=== PATIENT | female | born 1955 | race African-American/Black ===

== ENCOUNTER 2018-11-11 12:29 | Observation (INO) ==
--- OUTSIDE RECORDS SUMMARY | 2018-11-11 12:33 | External Medical Summary | Continuity of Care Document ---
:1955 Author Name aLn Camacho Address Unavailable Unavailable , Care Team Providers Name Role Phone Unavailable Unavailable Unavailable Nevin FERGUSON Unavailable [email or web address] [email or web address] [email or web address] GREENBERG Unavailable Unavailable Unavailable Unavailable Unavailable Problems Pain in shoulder (719.41) (M25.519) Diabetes mellitus, type II (250.00) (E11.9) Hypertension (401.9) (I10) Tobacco use (305.1) (Z72.0) Vitamin D deficiency (268.9) (E55.9) Restrictive airway disease (518.89) (J98.4) COPD (chronic obstructive pulmonary disease) (496) (J44.9) Cough (786.2) (R05) Hyperuricemia (790.6) (E79.0) Dyslipidemia (272.4) (E78.5) Depression (311) (F32.9) Chronic pain (338.29) (G89.29) GERD (gastroesophageal reflux disease) (530.81) (K21.9) Spinal stenosis (724.00) (M48.00) Allergies and Adverse Reactions Augmentin TABS (Allergy) CeleBREX CAPS (Allergy) Reaction: Edema Sulfa Drugs (Allergy) Medications CeleXA 40 MG Oral Tablet; 1 tablet daily , M.D. Refills: 0 Ambien 10 MG Oral Tablet; TAKE 1 TABLET AT BEDTIME. , M.D. Refills: 0 Flexeril 10 MG TABS; TAKE 1 TABLET 3 TIMES DAILY NEEDED. , M.D. Quantity: 90 Refills: 0 Chantix 0.5 MG Oral Tablet , M.D. Refills: 0 Accu-Chek Jazmín STRP; TEST 1-3 TIMES DAILY USE DIRECTED. , M.D. Refills: 0 Allopurinol 100 MG Oral Tablet; TAKE 1 TABLET DAILY. , M.D. Quantity: 30 Refills: 5 Gabapentin 300 MG TABS; TAKE 1 TABLET TWICE DAILY. , M.D. Refills: 0 metFORMIN HCl - 500 MG Oral Tablet; take 1 tablet by mouth t wice a day , M.D. Quantity: 180 Refills: 3 Vitamin B Complex TABS , M.D. Refills: 0 traZODone HCl - 100 MG Oral Tablet; TAKE 2 TABLETS AT BEDTIM E. , M.D. Quantity: 60 Refills: 0 metOLazone 2.5 MG Oral Tablet; ONE EVERY OTHER DAY , M.D. Refills: 0 Carafate 1 GM Oral Tablet; TAKE 1 TABLET 4 TIMES DAILY, BEFORE MEALS AND AT BEDTIME. , M.D. Refills: 0 Furosemide 20 MG Oral Tablet; TAKE 1 TABLET DAILY NEEDED. , M.D. Quantity: 30 Refills: 0 Lopressor 50 MG Oral Tablet; TAKE 1 TABLET DAILY. , M.D. Refills: 0 Vitamin D 1000 UNIT CAPS; TAKE DIRECTED. , M.D. Refills: 0 Cymbalta 20 MG Oral Capsule Delayed Release Particles; TAKE 2 CAPSULES DAILY. , M.D. Start: 11-Dec-2015 Refills: 0 Oxygen; 2LPM with activity MARTY Rooney Start: Quantity: 2 Refills: 0 Procedures History of Breast Surgery Reduction Procedure Status: Completed History of Rotator Cuff Repair Status: C ompleted History of Hemilaminectomy Status: Compl eted History of Hysterectomy Status: Complete d Immunizations Immunizations not documented Family History Mother Family history of congestive heart failure (V17.49) (Z82.49) Status: Active Social History - Smoking Status Former smoker Plan of Treatment Planned Observations Planned Goals not documented Results No Known Results Results not documented
--- NOTE | 2018-11-11 12:49 | XRay Report ---
XR chest 1V portable HISTORY: 63 years-old Female Chest Pain acute atypical chest pain COMPARISON: None available TECHNIQUE: Portable AP view of the chest FINDINGS: Cardiac silhouette is enlarged. No pneumothorax, large pleural effusion or overt pulmonary edema. Sub segmental left lateral basilar opacities with blunting of the left costophrenic angle. Degenerative c hanges of the left shoulder and spine. Right shoulder reverse total joint arthroplasty. IMPRESSION: 1. Cardiomegaly without overt pulmonary edema. 2. Subsegmental left basilar opacities with blunting of the left costophrenic angle may reflect atele ctasis and/or trace effusion. The above report was generated using voice recognition software. It may contain grammatical, syntax o r spelling errors. Electronically signed by: Rolo Johnson M.D. 11/11/2018 12:48 PM
[2018-11-11 13:05] LABS: Basophils # (auto) 0.03 K/uL (0-0.2); Basophils % (auto) 0.4 %; Eosinophils # (auto) 0.24 K/uL (0-0.5); Eosinophils % (auto) 3.5 %; Hematocrit (blood only) 44.1 % (37-47); Hemoglobin 14.9 g/dL (12.0-16.0); Immature Granulocytes # (auto) 0.01 K/uL (0.00-0.02); Immature Granulocytes % (auto) 0.1 %; Lymphocytes # (auto) 2.81 K/uL (1.2-3.4); Lymphocytes % (auto) 40.7 %; Mean Corpuscular Hgb Conc 33.8 g/dL (32-36); Mean Corpuscular Volume 90.6 fL (80-100); Monocytes # (auto) 0.46 K/uL (0.11-0.59); Monocytes % (auto) 6.7 %; Neutrophils # (auto) 3.36 K/uL (1.4-6.5); Neutrophils % (auto) 48.6 %; Platelet Count 234 K/uL (130-400); RDW Coefficient of Variation 13.2 % (11.5-14.5); RDW Standard Deviation 43.7 fL (36.4-46.3); Red Blood Count 4.87 M/uL (4.2-5.4); White Blood Count 6.91 K/uL (4.8-10.8)
[2018-11-11 13:11] LABS: Alanine Aminotransferase 23 U/L (12-78); Albumin Level 3.9 gm/dl (3.4-5.0); Aspartate Aminotransferase 19 U/L (15-37); BUN Creatinine Ratio 7.3 (10-20); Blood Urea Nitrogen 6 mg/dl (7-18); Calcium 8.9 mg/dl (8.5-10.1); Carbon Dioxide 31 mmol/L (21-32); Chloride 105 mmol/L (98-107); Creatinine Clr Calc Pharmacy 81.7 ml/min; Est GFR (African American) 86.9; Glucose 143 mg/dl (70-99); Potassium 3.5 mmol/L (3.5-5.1); Sodium 140 mmol/L (136-145)
[2018-11-11 13:16] LABS: Albumin Globulin Ratio 1.1 (0.9-2); Alkaline Phosphatase 121 U/L (45-117); Bilirubin,Total 0.4 mg/dl (0.2-1); Globulin 3.5 gm/dl (2.5-4.0); Total Protein 7.4 gm/dl (6.4-8.2); Troponin I < 0.015 ng/ml (0-0.045)
[2018-11-11 13:37] LABS: INR 1.1 (0.9-1.1); Partial Thromboplastin Ratio 1.1; Partial Thromboplastin Time 30.2 Seconds (21.0-31.0); Prothrombin Time 11.3 Seconds (9.0-12.0)
[2018-11-11 13:51] LABS: D Dimer 570 ug/L FEU (0-500)
[2018-11-11] MEDS ORDERED: OPTIRAY 320 125ml IV PRN (14:18)
--- NOTE | 2018-11-11 14:31 | CT Scan Report ---
CT angio chest PE protocol CT DOSE: 618.58 mGy.cm HISTORY: 63 years-old Female with PE. Acute shortness of breath TECHNIQUE: Multiple CTA images of the chest were obtained after the intravenous administration of 118 ml Optiray 320. Coronal and sagittal MIPS were obtained from the axial data set and were submitted for review. All measurements were obtained according to NASCET criteria. A dose lowering technique w as utilized adhering to the principles of ALARA. COMPARISON: Chest radiograph of same day. FINDINGS: CTA: Heart is mildly enlarged. No pericardial effusion. Reflux of contrast into the IVC and hepatic veins. Mild degree of coronary arterial calcifications are noted. No thoracic aortic aneurysm or dissection . Patency of the imaged great vessels. The pulmonary arterial tree is opacified to the level of the p roximal subsegmental branches and demonstrates no focal filling defects to suggest pulmonary thromboe mbolic disease. CT CHEST: Mildly enlarged heterogeneous appearance of the thyroid. No adenopathy by CT size criteria. The infer ior lung bases are not imaged. Mild paraseptal emphysema versus subpleural bleb formation of the lung apices. 5 mm groundglass nodular opacity of the apical segment right upper lobe, image 174 series 4. Additional 5 mm groundglass density of the right upper lobe adjacent to the major fissure, image 143 series 4 may be atelectatic in nature. Mild subsegmental dependent bibasilar atelectasis. No overt p ulmonary edema. The central airways appear to be patent. No focal airspace consolidation typical for pneumonia. No acute process of the imaged upper abdomen. Soft tissues are within normal limits. Reverse right sh oulder total joint arthroplasty. Degenerative changes of the spine and left shoulder. No acute fractu re identified. IMPRESSION: 1. No acute intrathoracic abnormality identified, specifically there is no evidence of pulmonary thro mboembolic disease. 2. 5 mm groundglass nodular opacity of the right lung apex. Follow-up guidelines provided below. Please refer to below summary of Fleischner criteria recommendations for follow-up of incidental CT n odules (Eliel Griggs, Guidelines for management of small pulmonary nodules detected on CT scans: A sta tement from the Fleischner Society, Radiology 237: [phone].) Note: newly detected indeterminate nodule in persons 35 years of age or older. * Low risk patients: minimal or absent history of smoking and/or other known risk factors * high risk patients: history of smoking or of other known risk factors (e.g. first degree relative with lung cancer, or exposure to asbestos, radon, uranium) * if a nodule up to 8 mm is partly solid or is ground glass further follow-up is required after 24 m onths to exclude possible slow growing adenocarcinoma (HAY) SUBSOLID NODULES Solitary pure ground-glass nodule * nodule size <6 mm - no CT follow-up required * nodule size >=6 mm - follow-up CT at 6-12 months, then every 2 years until 5 years Multiple subsolid nodules * nodule size <6 mm - follow-up CT at 3-6 months, consider further follow-up at 2 and 4 years if sta ble * nodule size >=6 mm - follow-up CT at 3-6 months, subsequent management based on the most suspiciou s nodule(s) The above report was generated using voice recognition software. It may contain grammatical, syntax o r spelling errors. Electronically signed by: Rolo Johnson M.D. 11/11/2018 2:30 PM
[2018-11-11] MEDS ORDERED: HYDROmorphone INJ 1 MG/ML SYRINGE IV STA (14:55)
--- NOTE | 2018-11-11 15:24 | Emergency Department Note ---
Entered by Clifford Laird acting as a scribe for Alex Grigsby DO History of Present Illness General Chief complaint: Chest Pain Stated complaint: chest pain Source: patient and EMS History of Present Illness Onset (ago): week(s) (past couple) Location: chest Pain Consistency: + intermittent Quality: + other (chest pains) Relieved By: + none Exacerbated By: + none Associated symptoms: + other (denies recent travel) Treatments prior to arrival: aspirin The patient is a 63 year old female who presents to the Emergency Room with complaints of intermittent chest pain for the past couple of weeks. EMS states that the patient was at the pain clinic in [place] today and told them she was having chest pain, so the ambulance was called and she was given 4 baby aspirin but no nitroglycerin. EMS reports that the patient had an EKG prior to arrival that was unremarkable. They state that she is on blood thinners and had a PE five months ago. The patient reports that she is currently experiencing the chest pain, and nothing improves or worsens it. She states that she uses 2L of supplemental oxygen at night and she regularly smokes. She states that she had a cardiac stress test at [facility] last year that was unremarkable. She has not had a cardiac catheterization. She denies recent travel. Home Medications Home Medications Medication Instructions Recorded Confirmed Type albuterol sulfate [Ventolin HFA] 2 puff INHALATION Q4H PRN 11/11/18 11/11/18 History apixaban [Eliquis] 5 mg PO BID 11/11/18 11/11/18 History atorvastatin 10 mg PO HS 11/11/18 11/11/18 History clopidogrel 75 mg PO QAM 11/11/18 11/11/18 History diphenhydramine-acetaminophen 2 tab PO HS 11/11/18 11/11/18 History [Tylenol PM Extra Strength] duloxetine 30 mg PO QAM 11/11/18 11/11/18 History gabapentin 800 mg PO TID 11/11/18 11/11/18 History insulin aspart U-100 [Novolog 25 unit SUBCUT UD 11/11/18 11/11/18 History Flexpen U-100 Insulin] insulin glargine [Lantus U-100 35 unit SUBCUT HS 11/11/18 11/11/18 History Insulin] levetiracetam 1,000 mg PO BID 11/11/18 11/11/18 History metformin 500 mg PO UD 11/11/18 11/11/18 History oxybutynin chloride 10 mg PO HS 11/11/18 11/11/18 History primidone 50 mg PO HS 11/11/18 11/11/18 History ropinirole 1 mg PO HS 11/11/18 11/11/18 History trazodone 200 mg PO HS 11/11/18 11/11/18 History varenicline [Chantix Continuing 1 mg PO BID 11/11/18 11/11/18 History Month Box] Allergies Allergy/AdvReac Type Severity Reaction Status Date / Time celecoxib [From Celebrex] AdvReac Severe Swelling Unverified 11/11/18 15:35 of Lip/Tongue/Throat amoxicillin [From Augmentin] AdvReac Intermediate Gastrointestinal Unverified 11/11/18 15:35 Upset clavulanic acid AdvReac Intermediate Gastrointestinal Unverified 11/11/18 15:35 [From Augmentin] Upset Sulfa (Sulfonamide AdvReac Unknown Unknown Unverified 11/11/18 15:35 Antibiotics) Past Med/Surg History Medical History Pulmonary embolism (Acute) on Eliquis COPD (chronic obstructive pulmonary disease) (Chronic) Diabetes mellitus, type II (Chronic) GERD (gastroesophageal reflux disease) (Chronic) HLD (hyperlipidemia) (Chronic) HTN (hypertension) (Chronic) History of CVA (cerebrovascular accident) (Chronic) Mood disorder (Chronic) Osteoarthritis (Chronic) Seizure-like activity (Chronic) Tobacco use disorder (Chronic) Vitamin D deficiency (Chronic) Surgical History H/O shoulder surgery History of carpal tunnel surgery Social History Preferred Language: Urdu Communication Ability: Effective Clinician Oncology Required: No Beliefs That Will Affect Care: None Current Living Situation: Family Current Living Situation Comment: lives w/ dtr Other Information That Helps Us Care for You: No Feels Safe at Home: Yes Safety Concerns: Feels Safe At This Time Smoking Status: Current every day smoker Tobacco Type: cigarettes Cigarettes Per Day: 3 Do You Dip or Chew Tobacco: No Tobacco Cessation Education Requested by Patient: No Hx Alcohol Use: No Hx Substance Use: No Review of Systems See HPI for pertinent positives & negatives. and A total of 10 systems reviewed and were otherwise negative Physical Exam Vital Signs Vital Signs - 24 hr 11/11/18 12:36 11/11/18 14:58 11/11/18 16:31 Temperature 36.8 C Temperature Source Oral Sepsis Recent Fever Within 48 Hours No Sepsis New/Unexplained Change in Mental Status No Sepsis Action Taken by Nursing No Action Required Pulse Rate 79 95 H Pulse Rate [Apical] 76 Pulse Rate from SpO2 Sensor 93 H Pulse Rhythm Regular Pulse Rhythm [Apical] Regular Pulse Strength Normal Pulse Strength [Apical] Normal Respiratory Rate 19 18 28 H Respiratory Effort / Characteristics Non-Labored Spontaneous Non-Labored Spontaneous Respiratory Depth Normal Normal Respiratory Pattern Regular Regular Blood Pressure 179/116 H 158/104 H Blood Pressure [Right Arm] 175/103 H Blood Pressure Mean 137 122 Blood Pressure Mean [Right Arm] 127 Blood Pressure Position [Right Arm] Pulse Oximetry 96 94 95 Oxygen Delivery Method Room Air Room Air 11/11/18 17:00 Temperature Temperature Source Sepsis Recent Fever Within 48 Hours Sepsis New/Unexplained Change in Mental Status Sepsis Action Taken by Nursing Pulse Rate Pulse Rate [Apical] 87 Pulse Rate from SpO2 Sensor Pulse Rhythm Pulse Rhythm [Apical] Regular Pulse Strength Pulse Strength [Apical] Normal Respiratory Rate 20 Respiratory Effort / Characteristics Non-Labored Spontaneous Respiratory Depth Normal Respiratory Pattern Regular Blood Pressure Blood Pressure [Right Arm] 151/101 H Blood Pressure Mean Blood Pressure Mean [Right Arm] 117 Blood Pressure Position [Right Arm] Lying Pulse Oximetry 97 Oxygen Delivery Method Room Air GENERAL: Patient is awake, alert, and in no acute distress.Patient is resting comfortably and showing no signs of anxiety EYES: The conjunctivae are clear. The pupils are round and reactive. EARS, NOSE, MOUTH AND THROAT: The nose is without any evidence of any deformity. Mucous membranes are moist.Tongue is midline NECK: The neck is nontender and supple. RESPIRATORY: Normal respiratory effort is noted. There is no evidence of wheezing rhonchi or rales to auscultation. CARDIOVASCULAR: Regular rate and rhythm noted. There no murmurs rubs or gallops normal S1 normal S2 GASTROINTESTINAL: The abdomen is soft. Bowel sounds are present in all quadrants. Abdomen is nontender. MUSCULOSKELETAL/EXTREMITIES: There is no evidence of gross deformity. Full range of motion is noted in the hips and shoulders. SKIN: There is no obvious evidence of any rash. There are no petechiae, pallor or cyanosis noted. NEUROLOGIC: Patient is awake alert and oriented x3. Course 1230: The patient was evaluated in room A4B. A complete history and physical examination were performed. 1454: I discussed tonights findings with the patient. 1614: I consulted Emili Richardson PA-C: [facility] Hospitalist. The patient will be reevaluated for hospitalization. Administered Medications Ioversol (Optiray 320 125ml) 120 ml IV ONCE PRN PRN Reason: Interaction Checking Stop: 11/15/18 14:17 Last Admin: 11/11/18 14:19 Dose: 120 ml Documented by: [id number] Metoprolol Tartrate (Lopressor) 25 mg PO QAM BRIGID Stop: 12/11/18 17:14 Last Admin: 11/11/18 17:15 Dose: 25 mg Documented by: [id number] Discontinued Medications Hydromorphone HCl (Dilaudid) 1 mg IV NOW STA Stop: 11/11/18 14:56 Last Admin: 11/11/18 14:58 Dose: 1 mg Documented by: [id number] Medical Decision Making Differential Diagnosis Differential diagnosis includes: cardiac ischemia, aortic dissection, pulmonary embolism, pneumonia, pneumothorax, musculoskeletal, infections, pericarditis, myocarditis, esophageal rupture, gastrointestinal, as well as others were entertained. Medical Records Attestation: I reviewed the patient's medical records. Home Medications Current Medication List: was personally reviewed by me Laboratory Data Attestation: I reviewed the patient's lab results. Result diagrams: 11/11/18 12:00 11/11/18 12:00 Lab Results 11/11/18 11/11/18 11/11/18 Range/Units 12:00 12:00 12:00 WBC 6.91 (4.8-10.8) K/uL RBC 4.87 (4.2-5.4) M/uL Hgb 14.9 (12.0-16.0) g/dL Hct 44.1 (37-47) % MCV 90.6 (80-100) fL MCH 30.6 (25-34) pg MCHC 33.8 (32-36) g/dL RDW Std Deviation 43.7 (36.4-46.3) fL RDW Coeff of Samra 13.2 (11.5-14.5) % Plt Count 234 (130-400) K/uL MPV 11.0 H (7.4-10.4) fL Immature Gran % (Auto) 0.1 % Neut % (Auto) 48.6 % Lymph % (Auto) 40.7 % Desha % (Auto) 6.7 % Eos % (Auto) 3.5 % Baso % (Auto) 0.4 % Immature Gran # (Auto) 0.01 (0.00-0.02) K/uL Neut # (Auto) 3.36 (1.4-6.5) K/uL Lymph # (Auto) 2.81 (1.2-3.4) K/uL Desha # (Auto) 0.46 (0.11-0.59) K/uL Eos # (Auto) 0.24 (0-0.5) K/uL Baso # (Auto) 0.03 (0-0.2) K/uL PT Cancelled INR Cancelled APTT Cancelled PTT Ratio Cancelled D-Dimer Cancelled Sodium 140 (136-145) mmol/L Potassium 3.5 (3.5-5.1) mmol/L Chloride 105 (98-107) mmol/L Carbon Dioxide 31 (21-32) mmol/L Anion Gap 4.0 (3-11) BUN 6 L (7-18) mg/dl Creatinine 0.84 (0.6-1.2) mg/dl Est Cr Clr Drug Dosing 81.7 ml/min Est GFR ( Amer) 86.9 Est GFR (Non-Af Amer) 75.0 BUN/Creatinine Ratio 7.3 L (10-20) Glucose 143 H (70-99) mg/dl Calcium 8.9 (8.5-10.1) mg/dl Total Bilirubin 0.4 (0.2-1) mg/dl AST 19 (15-37) U/L ALT 23 (12-78) U/L Alkaline Phosphatase 121 H (45-117) U/L Troponin I < 0.015 (0-0.045) ng/ml Total Protein 7.4 (6.4-8.2) gm/dl Albumin 3.9 (3.4-5.0) gm/dl Globulin 3.5 (2.5-4.0) gm/dl Albumin/Globulin Ratio 1.1 (0.9-2) Lipase 76 (73-393) U/L 11/11/18 Range/Units 13:17 WBC (4.8-10.8) K/uL RBC (4.2-5.4) M/uL Hgb (12.0-16.0) g/dL Hct (37-47) % MCV (80-100) fL MCH (25-34) pg MCHC (32-36) g/dL RDW Std Deviation (36.4-46.3) fL RDW Coeff of Samra (11.5-14.5) % Plt Count (130-400) K/uL MPV (7.4-10.4) fL Immature Gran % (Auto) % Neut % (Auto) % Lymph % (Auto) % Desha % (Auto) % Eos % (Auto) % Baso % (Auto) % Immature Gran # (Auto) (0.00-0.02) K/uL Neut # (Auto) (1.4-6.5) K/uL Lymph # (Auto) (1.2-3.4) K/uL Desha # (Auto) (0.11-0.59) K/uL Eos # (Auto) (0-0.5) K/uL Baso # (Auto) (0-0.2) K/uL PT 11.3 INR 1.1 APTT 30.2 PTT Ratio 1.1 D-Dimer 570 H* Sodium (136-145) mmol/L Potassium (3.5-5.1) mmol/L Chloride (98-107) mmol/L Carbon Dioxide (21-32) mmol/L Anion Gap (3-11) BUN (7-18) mg/dl Creatinine (0.6-1.2) mg/dl Est Cr Clr Drug Dosing ml/min Est GFR ( Amer) Est GFR (Non-Af Amer) BUN/Creatinine Ratio (10-20) Glucose (70-99) mg/dl Calcium (8.5-10.1) mg/dl Total Bilirubin (0.2-1) mg/dl AST (15-37) U/L ALT (12-78) U/L Alkaline Phosphatase (45-117) U/L Troponin I (0-0.045) ng/ml Total Protein (6.4-8.2) gm/dl Albumin (3.4-5.0) gm/dl Globulin (2.5-4.0) gm/dl Albumin/Globulin Ratio (0.9-2) Lipase (73-393) U/L Imaging Data Radiologist's Impression: Radiology results as stated below per my review and the radiologist's interpretation: CT angio chest PE protocol CT DOSE: 618.58 mGy.cm HISTORY: 63 years-old Female with PE. Acute shortness of breath TECHNIQUE: Multiple CTA images of the chest were obtained after the intravenous administration of 118 ml Optiray 320. Coronal and sagittal MIPS were obtained from the axial data set and were submitted for review. All measurements were obtained according to NASCET criteria. A dose lowering technique was utilized adhering to the principles of ALARA. COMPARISON: Chest radiograph of same day. FINDINGS: CTA: Heart is mildly enlarged. No pericardial effusion. Reflux of contrast into the IVC and hepatic veins. Mild degree of coronary arterial calcifications are noted. No thoracic aortic aneurysm or dissection. Patency of the imaged great vessels. The pulmonary arterial tree is opacified to the level of the proximal subsegmental branches and demonstrates no focal filling defects to suggest pulmonary thromboembolic disease. CT CHEST: Mildly enlarged heterogeneous appearance of the thyroid. No adenopathy by CT size criteria. The inferior lung bases are not imaged. Mild paraseptal emphysema versus subpleural bleb formation of the lung apices. 5 mm groundglass nodular opacity of the apical segment right upper lobe, image 174 series 4. Additional 5 mm groundglass density of the right upper lobe adjacent to the major fissure, image 143 series 4 may be atelectatic in nature. Mild subsegmental dependent bibasilar atelectasis. No overt pulmonary edema. The central airways appear to be patent. No focal airspace consolidation typical for pneumonia. No acute process of the imaged upper abdomen. Soft tissues are within normal limits. Reverse right shoulder total joint arthroplasty. Degenerative changes of the spine and left shoulder. No acute fracture identified. IMPRESSION: 1. No acute intrathoracic abnormality identified, specifically there is no evidence of pulmonary thromboembolic disease. 2. 5 mm groundglass nodular opacity of the right lung apex. Follow-up guidelines provided below. Please refer to below summary of Fleischner criteria recommendations for follow- up of incidental CT nodules (Eliel Griggs, Guidelines for management of small pulmonary nodules detected on CT scans: A statement from the Fleischner Society, Radiology 237: [phone].) Note: newly detected indeterminate nodule in persons 35 years of age or older. * Low risk patients: minimal or absent history of smoking and/or other known risk factors * high risk patients: history of smoking or of other known risk factors (e.g. first degree relative with lung cancer, or exposure to asbestos, radon, uranium) * if a nodule up to 8 mm is partly solid or is ground glass further follow-up is required after 24 months to exclude possible slow growing adenocarcinoma (HAY) SUBSOLID NODULES Solitary pure ground-glass nodule * nodule size <6 mm - no CT follow-up required * nodule size >=6 mm - follow-up CT at 6-12 months, then every 2 years until 5 years Multiple subsolid nodules * nodule size <6 mm - follow-up CT at 3-6 months, consider further follow-up at 2 and 4 years if stable * nodule size >=6 mm - follow-up CT at 3-6 months, subsequent management based on the most suspicious nodule(s) The above report was generated using voice recognition software. It may contain grammatical, syntax or spelling errors. Electronically signed by: Rolo Johnson M.D. 11/11/2018 2:30 PM XR chest 1V portable HISTORY: 63 years-old Female Chest Pain acute atypical chest pain COMPARISON: None available TECHNIQUE: Portable AP view of the chest FINDINGS: Cardiac silhouette is enlarged. No pneumothorax, large pleural effusion or overt pulmonary edema. Subsegmental left lateral basilar opacities with blunting of the left costophrenic angle. Degenerative changes of the left shoulder and spine. Right shoulder reverse total joint arthroplasty. IMPRESSION: 1. Cardiomegaly without overt pulmonary edema. 2. Subsegmental left basilar opacities with blunting of the left costophrenic angle may reflect atelectasis and/or trace effusion. The above report was generated using voice recognition software. It may contain grammatical, syntax or spelling errors. Electronically signed by: Rolo Johnson M.D. 11/11/2018 12:48 PM ECG Data Attestation: I personally reviewed and interpreted this ECG as follows: Indication: chest pain Rate (beats per minute): 76 Rhythm: normal sinus Findings: no PAC, no PVC, no ST depression and no ST elevation Comparison ECG Date: no prior available Blood Pressure Blood Pressure Findings: Elevated blood pressure Blood Pressure Disposition: further management by hospitalist MDM Narrative The patient is a 63-year-old female who came to the emergency department for an evaluation of chest pain. The patient has been having symptoms for the last 2 weeks. She was at the pain clinic in [place] today and when they did a review of systems she admitted that she was having chest pain. At that point she was sent to the emergency department immediately for further evaluation. The patient's EKG shows no acute ischemic changes. And her troponin was negative despite having ongoing pain for many hours. I discussed the patient's laboratory and radiographic studies with her. I also discussed the limitations of the emergency department work-up for chest pain with her. Her d-dimer is elevated and given her past medical history of CT the chest was obtained. This did not show any signs of pulmonary embolus but did show a small nodule which will require outpatient follow-up. The patient was treated with pain medication. She was encouraged to rest and avoid any strenuous activity. She is also encouraged to call her family doctor to schedule a follow-up appointment for soon as possible for further testing such as possible stress testing. I also encouraged her to have her blood pressure rechecked with her primary care physician and return to the emergency department immediately if symptoms change worsen or the need arises. On reevaluation of the patient she requested that we consider discussing her condition with the hospitalist group because she was uncomfortable being discharged giving her elevated blood pressure as well as her ongoing pain. For this reason I discussed her case with the on-call [facility] hospitalist group. They have agreed to evaluate the patient in the emergency department for further management and disposition. Impression & Plan Chest pain Discharge Plan Visit Data *Final* Discharge Date/Time: 11/11/18 17:23 Chief Complaint: Chest Pain Stated Complaint: chest pain ED Provider: Alex Grigsby Discharge Problem: Chest pain Patient Disposition: Admitted As Inpatient Condition: Good Discharge Instructions Interventions: ED Discharge Assessment Last Done: 11/11/18 17:23 Discharge Problem: Chest pain Qualifiers: Chest pain type: unspecified Qualified Code(s): R07.9 - Chest pain, unspecified The scribe's documentation has been prepared under my direction and personally reviewed by me in its entirety. I confirm that the note above accurately reflects all work, treatment, procedures, and medical decision making performed by me.
--- NOTE | 2018-11-11 16:50 | History & Physical Report ---
Date of Service November 11, 2018 Assessment & Plan (1) Chest pain: This is a 63yo F with a PMH of DM II, tobacco use, history of PE (on Eliquis), COPD, h/o CVA, history of seizure-like activity, mood disorder, HLD, CORIN (on 2L NC HS) and other medical problems listed below who presents with wors ening chest pain x 2 weeks. -Has been experiencing intermittent R-sided chest pain x 2 weeks, episodes last for 15 minutes each -Possibly 2/2 uncontrolled hypertension -R/o ACS; risk factors include HTN, HLD, DM II, tobacco use and family hx -Initial troponin negative. Initial EKG was normal sinus rhythm -CTA chest performed and was negative for PE. No acute intrathoracic abnormality identified -Trend serial cardiac enzymes. Check 2D echo -Would benefit from out-patient nuclear stress test -Repeat EKG in am -NTG PRN (2) Pulmonary nodule: Chest CTA with 5 mm groundglass nodular opacity of the right lung apex -No follow up required, per Fleischner criteria (3) Diabetes mellitus, type II: A1c 8.2 in Jan 2018. Repeat ordered -Has not been taking Lantus for the past 3 weeks due to lower BSG -Hold home agents -Basal/bolus insulin while in-patient -Glycemic consult placed -BSG AC HS (4) Seizure-like activity: No known seizures since 2017 -Continue home dose Keppra (5) History of CVA (cerebrovascular accident): Continue Plavix (6) HTN (hypertension): Initially uncontrolled at 179/116 -Used to be on antihypertensives but not currently prescribed any -Given Lopressor 25 mg p.o. dose in ED. Will give additional dose tomorrow morning (7) COPD (chronic obstructive pulmonary disease): History of long-term smoking, has decreased amount -Uses albuterol as needed (8) Tobacco use disorder: Has decreased to 3 cigarettes daily, using Chantix twice daily (9) GERD (gastroesophageal reflux disease): Continue PPI (10) Mood disorder: Continue Cymbalta (11) CORIN (obstructive sleep apnea): 2L NC HS DVT Ppx: Eliquis Code status: FULL PCP: Rajesh Dispo: Tele observation. Plan to return home once medically stable. Patient seen in collaboration with Dr. Cortes. Please see addendum. History of Present Illness Chief Complaint: chest pain Primary Care Provider: Adonay Martinez MD This is a 63yo F with a PMH of DM II, tobacco use, history of PE (on Eliquis), COPD, h/o CVA, history of seizure-like activity, mood disorder, HLD, CORIN (on 2L NC HS) and other medical problems listed below who presents with worsening chest pain. Has been experiencing intermittent chest pain x 2 weeks. Describes pain as sharp, shooting pain in R chest with radiation to L chest. Episodes last for 15 minutes at a time before it becomes dull. Associated with palpitations and diaphoresis but not SOB, nausea or vomiting. Per records, patient has history of a nuclear stress test at [facility] in May 2017 that was negative for ischemia. Family history of heart disease. Longtime smoker but recently cut down to 3 cigarettes a day and is also taking Chantix. Currently, patient is chest pain-free. BP is initially elevated at 179/116. Does not currently take any home blood pressure medicines and states "she needs to start those again". Does not know what she was taking previously. Denies a ny fever, chills, lightheadedness, headache, palpitations, shortness of breath, nausea, vomiting, abdominal pain, dysuria, diarrhea or constipation. Of note, patient recently established with [facility] pain management in [place]. Was previously on oxycodone and Ambien but did not pass drug screen in Apr 2018 and has not received prescription narcotics since then. Allergies Allergy/AdvReac Type Severity Reaction Status Date / Time celecoxib [From Celebrex] AdvReac Severe Swelling Unverified 11/11/18 15:35 of Lip/Tongue/Throat amoxicillin [From Augmentin] AdvReac Intermediate Gastrointestinal Unverified 11/11/18 15:35 Upset clavulanic acid AdvReac Intermediate Gastrointestinal Unverified 11/11/18 15:35 [From Augmentin] Upset Sulfa (Sulfonamide AdvReac Unknown Unknown Unverified 11/11/18 15:35 Antibiotics) Home Medications Home Medications Medication Instructions Recorded Confirmed Type albuterol sulfate [Ventolin HFA] 2 puff INHALATION Q4H PRN 11/11/18 11/11/18 History apixaban [Eliquis] 5 mg PO BID 11/11/18 11/11/18 History atorvastatin 10 mg PO HS 11/11/18 11/11/18 History clopidogrel 75 mg PO QAM 11/11/18 11/11/18 History diphenhydramine-acetaminophen 2 tab PO HS 11/11/18 11/11/18 History [Tylenol PM Extra Strength] duloxetine 30 mg PO QAM 11/11/18 11/11/18 History gabapentin 800 mg PO TID 11/11/18 11/11/18 History insulin aspart U-100 [Novolog 25 unit SUBCUT UD 11/11/18 11/11/18 History Flexpen U-100 Insulin] insulin glargine [Lantus U-100 35 unit SUBCUT HS 11/11/18 11/11/18 History Insulin] levetiracetam 1,000 mg PO BID 11/11/18 11/11/18 History metformin 500 mg PO UD 11/11/18 11/11/18 History oxybutynin chloride 10 mg PO HS 11/11/18 11/11/18 History primidone 50 mg PO HS 11/11/18 11/11/18 History ropinirole 1 mg PO HS 11/11/18 11/11/18 History trazodone 200 mg PO HS 11/11/18 11/11/18 History varenicline [Chantix Continuing 1 mg PO BID 11/11/18 11/11/18 History Month Box] Past Med/Surg History Medical History Diabetes mellitus, type II (Chronic) Mood disorder (Chronic) Vitamin D deficiency (Chronic) HLD (hyperlipidemia) (Chronic) Seizure-like activity (Chronic) History of CVA (cerebrovascular accident) (Chronic) GERD (gastroesophageal reflux disease) (Chronic) Osteoarthritis (Chronic) COPD (chronic obstructive pulmonary disease) (Chronic) Tobacco use disorder (Chronic) HTN (hypertension) (Chronic) Pulmonary embolism (Chronic) on Eliquis Surgical History H/O shoulder surgery (Chronic) History of carpal tunnel surgery (Chronic) Social History Preferred Language: [place] Communication Ability: Effective 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 Physical Exam Physical Exam: General Appearance: WD/WN, no apparent distress, obese, resting comfortably Head: normocephalic, atraumatic Eyes: normal inspection, PERRL, EOMI ENT: hearing grossly normal, pharynx normal (moist mucous membranes) Neck: supple, no JVD, no adenopathy Respiratory/Chest: No chest wall tenderness. Lungs clear to auscultation. No wheezes, rales or rhonci. No respiratory distress or accessory muscle use Cardiovascular: regular rate, rhythm, no murmur, normal peripheral pulses, no BLE edema Abdomen/GI: normal bowel sounds, soft, non-tender to palpation Extremities/Musculoskelatal: normal inspection, no calf tenderness, normal capillary refill Neurologic/Psych: alert, normal mood/affect, oriented x 3 Skin: normal color, warm/dry Results & Data Vital Signs (Past 12 Hours) Vital Signs Temp Pulse Pulse Resp BP BP Pulse Ox 11/11/18 14:58 76 18 175/103 H 94 11/11/18 12:36 36.8 C 79 19 179/116 H 96 Laboratory Results Short CBC 11/11/18 Range/Units 12:00 WBC 6.91 (4.8-10.8) K/uL Hgb 14.9 (12.0-16.0) g/dL Hct 44.1 (37-47) % Plt Count 234 (130-400) K/uL BMP 11/11/18 12:00 Sodium 140 Potassium 3.5 Chloride 105 Carbon Dioxide 31 BUN 6 L Creatinine 0.84 Glucose 143 H Calcium 8.9 Cardiac Enzymes 11/11/18 Range/Units 12:00 Troponin I < 0.015 (0-0.045) ng/ml Liver Function 11/11/18 Range/Units 12:00 Total Bilirubin 0.4 (0.2-1) mg/dl AST 19 (15-37) U/L ALT 23 (12-78) U/L Alkaline Phosphatase 121 H (45-117) U/L Albumin 3.9 (3.4-5.0) gm/dl Diagnostic Findings CXR: IMPRESSION: 1. Cardiomegaly without overt pulmonary edema. 2. Subsegmental left basilar opacities with blunting of the left costophrenic angle may reflect atelectasis and/or trace effusion. Chest CTA: IMPRESSION: 1. No acute intrathoracic abnormality identified, specifically there is no evidence of pulmonary thromboembolic disease. 2. 5 mm groundglass nodular opacity of the right lung apex. Follow-up guidelines provided below. ECG Rhythm: normal sinus Supervising Physician Co-Signing Physician Notes Attending addendum: Patient seen and examined, care coordinated with Emili Richardson PA-C This is a 63-year-old female with past medical history of type 2 diabetes not on any meds, tobacco abuse, history of PE on Eliquis, COPD, Resented to the ER with complaint of intermittent chest pain for 2 weeks Patient was evaluated at [facility] for similar symptoms last year, nuclear cardiac stress test -negative for stress-induced ischemia Twelve-lead EKG no evidence of any acute change, Patient was hypertensive-not on any blood pressure medications (Took herself off months ago) Twelve-lead EKG negative for ischemic change, troponin negative Chest pain possible secondary to hypertensive urgency Observation and telemetry, serial cardiac marker Blood pressure control Resting echocardiogram ordered Please refer to further documentation by Emili Richardson PA-C for discussion of ot her chronic issues Kristel Cortes MD (1) Chest pain Chest pain type: unspecified Qualified Code(s): R07.9 - Chest pain, unspecified
[2018-11-11] MEDS: METOPROLOL TARTRATE 25 MG TAB PO SCH (17:15)
[2018-11-11] MEDS ORDERED: DEXTROSE 50% 50 ML SYRINGE IV PRN (17:49)
[2018-11-11] MEDS ORDERED: ALUMINUM/MAGNESIUM SUSP 30 ML UDC PO PRN (17:49)
[2018-11-11] MEDS ORDERED: NITROGLYCERIN SL 0.4 MG/TAB TAB SL PRN ×2 (17:49→18:15)
[2018-11-11] MEDS ORDERED: ALBUTEROL HFA 8 GM INHALER INH PRN (17:49)
[2018-11-11] MEDS ORDERED: GLUCAGON FOR INJ 1 MG VIAL SQ PRN (17:49)
[2018-11-11] MEDS ORDERED: GLUCOSE 10 TABS/TUBE PO PRN (17:49)
[2018-11-11] MEDS ORDERED: CARBOHYDRATES FOR HYPOGLYCEMIA PO PRN (17:49)
[2018-11-11] MEDS ORDERED: MAGNESIUM HYDROXIDE SUSP 30 ML UDC PO PRN (17:49)
[2018-11-11] MEDS ORDERED: POLYETHYLENE (MIRALAX) 17 GM PACK PO PRN (17:49)
[2018-11-11] MEDS ORDERED: ACETAMINOPHEN 325 MG TAB PO PRN ×2 (17:49→18:09)
[2018-11-11] MEDS ORDERED: GLUCOSE 40% GEL 15 GM TUBE PO PRN (17:49)
[2018-11-11] MEDS: KETOROLAC TROMETHAMINE 15 MG/ML VIAL IV PRN (19:07)
[2018-11-11] MEDS ORDERED: HydrALAZINE HCL 20 MG/ML VIAL IV PRN (19:41)
[2018-11-11] MEDS: LISINOPRIL 2.5 MG TAB PO SCH (20:45)
[2018-11-11] MEDS: OXYBUTYNIN CHLORIDE XL 5 MG TABCR PO SCH (20:47)
[2018-11-11] MEDS: VARENICLINE 1 MG TAB PO SCH (20:47)
[2018-11-11] MEDS: APIXABAN 5 MG TABLET PO SCH (20:48)
[2018-11-11] MEDS: levETIRAcetam 500 MG TAB PO SCH (20:48)
[2018-11-11] MEDS: GABAPENTIN 800 MG TAB PO SCH (20:49)
[2018-11-11] MEDS: ATORVASTATIN 10 MG TAB PO SCH (20:49)
[2018-11-11] MEDS: INSULIN GLARGINE SOLOSTAR 100 UNITS/ML 3 ML PEN SC SCH (20:53)
[2018-11-11] MEDS: INSULIN ASPART 100 UNITS/ML 3 ML PEN SC SCH (20:54)
[2018-11-11] MEDS ORDERED: OXYCODONE/ACETAMINOPHEN 5mg/325mg TAB ONE (23:09)
[2018-11-11] MEDS: OXYCODONE/ACETAMINOPHEN 5mg/325mg TAB PO PRN (23:11)
[2018-11-12] MEDS: ROPINIROLE HCL 1 MG TABLET PO SCH (00:52)
[2018-11-12] MEDS: TRAZODONE HCL 100 MG TAB PO SCH (00:52)
[2018-11-12] MEDS: PRIMIDONE 50 MG TAB PO SCH (00:53)
[2018-11-12] MEDS ORDERED: ACETAMINOPHEN 500 MG TAB PO STA (02:12)
[2018-11-12 06:39] LABS: Hematocrit (blood only) 40.6 % (37-47); Hemoglobin 13.6 g/dL (12.0-16.0); Mean Corpuscular Hgb Conc 33.5 g/dL (32-36); Mean Corpuscular Volume 90.2 fL (80-100); Mean Platelet Volume 10.7 fL (7.4-10.4); Platelet Count 221 K/uL (130-400); RDW Standard Deviation 42.7 fL (36.4-46.3); White Blood Count 5.87 K/uL (4.8-10.8)
[2018-11-12 06:52] LABS: BUN Creatinine Ratio 14.2 (10-20); Blood Urea Nitrogen 11 mg/dl (7-18); Calcium 8.6 mg/dl (8.5-10.1); Carbon Dioxide 31 mmol/L (21-32); Chloride 106 mmol/L (98-107); Creatinine Clr Calc Pharmacy 86.8 ml/min; Est GFR (African American) 93.6; Est GFR (Non-African American) 80.8; Glucose 182 mg/dl (70-99); Potassium 3.3 mmol/L (3.5-5.1); Sodium 143 mmol/L (136-145)
[2018-11-12 06:56] LABS: Chol HDL Ratio 3; Cholesterol 112 mg/dl (0-200); HDL Cholesterol 43 mg/dl; LDL Cholesterol Calculated 45 mg/dl; Triglycerides 118 mg/dl (0-150); Troponin I < 0.015 ng/ml (0-0.045); VLDL Cholesterol 24 mg/dl
[2018-11-12 08:07] LABS: Estimated Average Glucose 151 mg/dl; Hemoglobin A1C 6.9 % (4.5-5.6)
[2018-11-12] MEDS ORDERED: POTASSIUM CHLORIDE 20 MEQ TABCR PO ONE (08:15)
[2018-11-12] MEDS ORDERED: ASPIRIN 81 MG ECTAB PO SCH (09:00)
[2018-11-12] MEDS: DULOXETINE HCL 30 MG CAP PO SCH (09:09)
[2018-11-12] MEDS: GABAPENTIN 800 MG TAB PO SCH ×3 (09:09→21:30)
[2018-11-12] MEDS: VARENICLINE 1 MG TAB PO SCH ×2 (09:09→21:29)
[2018-11-12] MEDS: levETIRAcetam 500 MG TAB PO SCH ×2 (09:10→21:30)
[2018-11-12] MEDS: APIXABAN 5 MG TABLET PO SCH ×2 (09:10→21:29)
[2018-11-12] MEDS: CLOPIDOGREL BISULFATE 75 MG TAB PO SCH (09:10)
[2018-11-12] MEDS: LISINOPRIL 2.5 MG TAB PO SCH (09:10)
[2018-11-12] MEDS: INSULIN GLARGINE SOLOSTAR 100 UNITS/ML 3 ML PEN SC SCH ×2 (09:16→21:34)
[2018-11-12] MEDS: INSULIN ASPART 100 UNITS/ML 3 ML PEN SC SCH ×4 (09:18→21:32)
[2018-11-12] MEDS: KETOROLAC TROMETHAMINE 15 MG/ML VIAL IV PRN ×2 (09:31→18:17)
[2018-11-12] MEDS: METOPROLOL TARTRATE 25 MG TAB PO SCH (11:15)
[2018-11-12] MEDS ORDERED: PERFLUTREN LIPID MICROSPHERE (DEFINITY) IV ONE (14:12)
[2018-11-12] MEDS: LIDOCAINE 5% 1 PATCH TD SCH (14:38)
--- NOTE | 2018-11-12 17:57 | Hospitalist Progress Note ---
Date of Service November 12, 2018 Assessment & Plan (1) Chest pain: No acute EKG changes. MA ruled out with serial troponins. Acute PE ruled out by CTA chest. No apparent infectious process. Suspect chest wall pain. Therapeutic options for pain control limited. Best to avoid NSAID's due to anticoagulation. No benefit from acetaminophen or tramadol. Best to avoid narcotics. Best to avoid steroids due to DM. Already on gabapentin. Try lidocaine patch. (2) Hypertension: Continue lisinopril. (3) Pulmonary nodule: Single 5 mm groundglass nodular opacity noted in right lung apex. Patient is a smoker. 2017 Fleischner Society guidelines do not recommend follow-up for single groundglass lesions < 6 mm. Smoking cessation counseling. Low-threshold for radiographic follow-up if any concerning symptoms. (4) CORIN (obstructive sleep apnea): Continue CPAP. (5) Diabetes mellitus, type II: DM type 2 managed with Lantus and NovoLog at home. Hgb A1C 6.9. Lantus + NovoLog per protocol during hospital stay. FBS today = 147. (6) History of pulmonary embolism: Continue apixaban. (7) DVT prophylaxis: Taking apixaban for history of pulmonary embolism. Ambulate. (8) Discharge planning issues: Anticipated discharge to home. Family Medicine follow-up with Dr. Martinez. Subjective Recheck for chest pain and other problems. Patient seen in their room around 11:40. Persistent anterior right-sided chest pain. Pain worse with deep inspiration, not aggravated by exertion. No fever. No cough. Gets some relieve with IV ketorolac. Has chronic pain due to arthritis. Cannot take NSAID's due to anticoagulation. Does not get relief of her chronic pain from acetaminophen or tramadol. Scheduled to see pain specialist in near future. Review of Systems: Constitutional- no fever. Cardiac- as noted above. Pulmonary- as noted above. GI- no nausea, vomiting, diarrhea, melena, hematochezia. - no urinary symptoms. Otherwise, as noted above. Physical Exam Constitutional: no acute distress Respiratory: no respiratory distress Auscultation: lungs clear to auscultation bilaterally Cardiovascular: Rate/Rhythm: regular rate and regular rhythm Heart Sounds: no gallop and no cardiac rub Vessels: no JVD Extremities: no calf tenderness and no edema Chest (Breasts): Chest: + abnormal inspection of chest (tenderness to palpation- right parasternal and right inframammary) Gastrointestinal (Abdomen): normal bowel sounds, soft, nontender, no hepatosplenomegaly Skin: no rashes, warm and dry Psychiatric: Orientation: alert and oriented x 3 Results & Data Vital Signs (Past 12 Hours) Vital Signs Temp Pulse Pulse Pulse Resp BP BP 11/12/18 16:23 153/94 H 11/12/18 15:54 36.9 C 66 20 174/98 H 11/12/18 08:00 36.6 C 77 20 124/81 11/12/18 07:26 74 Pulse Ox 11/12/18 16:23 11/12/18 15:54 95 11/12/18 08:00 94 11/12/18 07:26 Laboratory Results Laboratory Results - last 24 hr 11/11/18 11/11/18 11/12/18 18:35 20:11 00:07 WBC RBC Hgb Hct MCV MCH MCHC RDW Std Deviation RDW Coeff of Samra Plt Count MPV Sodium Potassium Chloride Carbon Dioxide Anion Gap BUN Creatinine Est Cr Clr Drug Dosing Est GFR ( Amer) Est GFR (Non-Af Amer) BUN/Creatinine Ratio Glucose POC Glucose 156 H Estimat Average Glucose Hemoglobin A1c Calcium Troponin I < 0.015 < 0.015 Triglycerides Cholesterol LDL Cholesterol, Calc VLDL Cholesterol, Calc HDL Cholesterol Cholesterol/HDL Ratio 11/12/18 11/12/18 11/12/18 06:10 06:10 06:10 WBC 5.87 RBC 4.50 Hgb 13.6 Hct 40.6 MCV 90.2 MCH 30.2 MCHC 33.5 RDW Std Deviation 42.7 RDW Coeff of Samra 13.0 Plt Count 221 MPV 10.7 H Sodium 143 Potassium 3.3 L Chloride 106 Carbon Dioxide 31 Anion Gap 6.0 BUN 11 D Creatinine 0.79 Est Cr Clr Drug Dosing 86.8 Est GFR ( Amer) 93.6 Est GFR (Non-Af Amer) 80.8 BUN/Creatinine Ratio 14.2 Glucose 182 H POC Glucose Estimat Average Glucose 151 Hemoglobin A1c 6.9 H Calcium 8.6 Troponin I < 0.015 Triglycerides 118 Cholesterol 112 LDL Cholesterol, Calc 45 VLDL Cholesterol, Calc 24 HDL Cholesterol 43 Cholesterol/HDL Ratio 3 11/12/18 11/12/18 11/12/18 06:10 07:33 11:52 WBC RBC Hgb Hct MCV MCH MCHC RDW Std Deviation RDW Coeff of Samra Plt Count MPV Sodium Potassium Chloride Carbon Dioxide Anion Gap BUN Creatinine Est Cr Clr Drug Dosing Est GFR ( Amer) Est GFR (Non-Af Amer) BUN/Creatinine Ratio Glucose POC Glucose 147 H 166 H Estimat Average Glucose Hemoglobin A1c Calcium Troponin I Cancelled Triglycerides Cholesterol LDL Cholesterol, Calc VLDL Cholesterol, Calc HDL Cholesterol Cholesterol/HDL Ratio 11/12/18 16:49 WBC RBC Hgb Hct MCV MCH MCHC RDW Std Deviation RDW Coeff of Samra Plt Count MPV Sodium Potassium Chloride Carbon Dioxide Anion Gap BUN Creatinine Est Cr Clr Drug Dosing Est GFR ( Amer) Est GFR (Non-Af Amer) BUN/Creatinine Ratio Glucose POC Glucose 107 H Estimat Average Glucose Hemoglobin A1c Calcium Troponin I Triglycerides Cholesterol LDL Cholesterol, Calc VLDL Cholesterol, Calc HDL Cholesterol Cholesterol/HDL Ratio Diagnostic Findings CTA CHEST IMPRESSION: 1. No acute intrathoracic abnormality identified, specifically there is no evidence of pulmonary thromboembolic disease. 2. 5 mm groundglass nodular opacity of the right lung apex. Follow-up guidelines provided below. Electronically signed by: Rolo Johnson M.D. 11/11/2018 2:30 PM (1) Chest pain Chest pain type: unspecified Qualified Code(s): R07.9 - Chest pain, unspecified
[2018-11-12] MEDS: OXYBUTYNIN CHLORIDE XL 5 MG TABCR PO SCH (21:29)
[2018-11-12] MEDS: ATORVASTATIN 10 MG TAB PO SCH (21:30)
[2018-11-12] MEDS: OXYCODONE/ACETAMINOPHEN 5mg/325mg TAB PO PRN (22:12)
[2018-11-13] MEDS: KETOROLAC TROMETHAMINE 15 MG/ML VIAL IV PRN ×3 (00:21→14:20)
[2018-11-13] MEDS ORDERED: ACETAMINOPHEN 500 MG TAB PO ONE (01:00)
[2018-11-13] MEDS: PRIMIDONE 50 MG TAB PO SCH (01:57)
[2018-11-13] MEDS: TRAZODONE HCL 100 MG TAB PO SCH (01:57)
[2018-11-13] MEDS: ROPINIROLE HCL 1 MG TABLET PO SCH (01:58)
[2018-11-13] MEDS ORDERED: LIDOCAINE 5% 1 PATCH TD SCH (02:00)
[2018-11-13] MEDS: INSULIN ASPART 100 UNITS/ML 3 ML PEN SC SCH ×3 (08:13→17:23)
[2018-11-13] MEDS: INSULIN GLARGINE SOLOSTAR 100 UNITS/ML 3 ML PEN SC SCH (08:14)
[2018-11-13] MEDS: levETIRAcetam 500 MG TAB PO SCH (08:15)
[2018-11-13] MEDS: CLOPIDOGREL BISULFATE 75 MG TAB PO SCH (08:16)
[2018-11-13] MEDS: APIXABAN 5 MG TABLET PO SCH (08:16)
[2018-11-13] MEDS: VARENICLINE 1 MG TAB PO SCH (08:16)
[2018-11-13] MEDS: GABAPENTIN 800 MG TAB PO SCH ×2 (08:16→14:11)
[2018-11-13] MEDS: LISINOPRIL 2.5 MG TAB PO SCH (08:17)
[2018-11-13] MEDS: METOPROLOL TARTRATE 25 MG TAB PO SCH (08:17)
[2018-11-13] MEDS: DULOXETINE HCL 30 MG CAP PO SCH (08:17)
[2018-11-13] MEDS: LIDOCAINE 5% 1 PATCH TD SCH (08:18)
[2018-11-13] MEDS: OXYCODONE/ACETAMINOPHEN 5mg/325mg TAB PO PRN ×2 (12:47→18:37)
--- NOTE | 2018-11-13 14:05 | Hospitalist Progress Note ---
Date of Service November 13, 2018 Assessment & Plan (1) Chest pain: No acute EKG changes. IA ruled out with serial troponins. Acute PE ruled out by CTA chest. No apparent infectious process. Suspect chest wall pain. Has chronic pain related to arthritis. Therapeutic options for pain control limited. Best to avoid NSAID's due to anticoagulation; also has hx of allergy to celecoxib. No benefit in past from acetaminophen or tramadol. Best to avoid narcotics- history of concerns about her use of narcotics in the past. Best to avoid steroids due to DM. Already on gabapentin. Tried lidocaine patch without benefit. Increase duloxetine to 60 mg daily. Pt to schedule f/u appt with pain management. (2) Hypertension: Continue lisinopril. (3) Pulmonary nodule: Two 5 mm groundglass nodular opacities noted in RUL on CTA chest. Patient is a smoker. 2017 Fleischner Society guidelines recommend follow-up for multiple groundglass lesions < 6 mm in 3-6 months with consideration of f/u at [address] findings and recommendations discussed with patient. Smoking cessation discussed. Follow-up CT chest to be scheduled by PCP in 6 months. (4) CORIN (obstructive sleep apnea): Continue CPAP. (5) Diabetes mellitus, type II: DM type 2 managed with Lantus and NovoLog at home. Hgb A1C 6.9. Lantus + NovoLog per protocol during hospital stay. FBS today = 112. Discharge on usual regimen. (6) History of pulmonary embolism: Continue apixaban. (7) DVT prophylaxis: Taking apixaban for history of pulmonary embolism. Ambulate. (8) Discharge planning issues: Discharge to home. Family Medicine follow-up with Dr. Mena at [facility] in [place]. Subjective Recheck for chest pain and other problems. Patient seen in their room around 14:00. Persistent anterior right-sided chest pain. Pain fairly constant, not aggravated by exertion. No fever. No cough. No benefit from lidocaine patch. Review of Systems: Constitutional- no fever. Cardiac- as noted above. Pulmonary- as noted above. GI- no nausea, vomiting, diarrhea, melena, hematochezia. - no urinary symptoms. Otherwise, as noted above. Physical Exam Constitutional: no acute distress Respiratory: no respiratory distress Auscultation: lungs clear to auscultation bilaterally Cardiovascular: Rate/Rhythm: regular rate and regular rhythm Heart Sounds: no gallop and no cardiac rub Vessels: no JVD Extremities: no calf tenderness and no edema Gastrointestinal (Abdomen): normal bowel sounds, soft, nontender, no hepatosplenomegaly Skin: no rashes, warm and dry Psychiatric: Orientation: alert and oriented x 3 Results & Data Vital Signs (Past 12 Hours) Vital Signs Temp Pulse Resp BP Pulse Ox 11/13/18 07:24 36.5 C 68 20 134/83 95 (1) Chest pain Chest pain type: unspecified Qualified Code(s): R07.9 - Chest pain, unspecified
--- NOTE | 2018-11-13 18:56 | Discharge Summary ---
Date of Service Date of Admission: 11/11/18 Date of Discharge: 11/13/18 Admission HPI Per Admitting Provider This is a 63yo F with a PMH of DM II, tobacco use, history of PE (on Eliquis), COPD, h/o CVA, history of seizure-like activity, mood disorder, HLD, CORIN (on 2L NC HS) and other medical problems listed below who presents with worsening chest pain. Has been experiencing intermittent chest pain x 2 weeks. Describes pain as sharp, shooting pain in R chest with radiation to L chest. Episodes last for 15 minutes at a time before it becomes dull. Associated with palpitations and diaphoresis but not SOB, nausea or vomiting. Per records, patient has history of a nuclear stress test at [facility] in May 2017 that was negative for ischemia. Family history of heart disease. Longtime smoker but recently cut down to 3 cigarettes a day and is also taking Chantix. Currently, patient is chest pain-free. BP is initially elevated at 179/116. Does not currently take any home blood pressure medicines and states "she needs to start those again". Does not know what she was taking previously. Denies any fever, chills, lightheadedness, headache, palpitations, shortness of breath, nausea, vomiting, abdominal pain, dysuria, diarrhea or constipation. Of note, patient recently established with [facility] pain management in [place]. Was previously on oxycodone and Ambien but did not pass drug screen in Apr 2018 and has not received prescription narcotics since then. Admission Exam Per Admitting Provider General Appearance: WD/WN, no apparent distress, obese, resting comfortably Head: normocephalic, atraumatic Eyes: normal inspection, PERRL, EOMI ENT: hearing grossly normal, pharynx normal (moist mucous membranes) Neck: supple, no JVD, no adenopathy Respiratory/Chest: No chest wall tenderness. Lungs clear to auscultation. No wheezes, rales or rhonci. No respiratory distress or accessory muscle use Cardiovascular: regular rate, rhythm, no murmur, normal peripheral pulses, no BLE edema Abdomen/GI: normal bowel sounds, soft, non-tender to palpation Extremities/Musculoskelatal: normal inspection, no calf tenderness, normal capillary refill Neurologic/Psych: alert, normal mood/affect, oriented x 3 Skin: normal color, warm/dry Principal Diagnosis chest pain, probably musculoskeletal OTHER ACUTE / NEW DIAGNOSES: pulmonary nodules RUL Discharge Data Allergies Allergy/AdvReac Type Severity Reaction Status Date / Time celecoxib [From Celebrex] AdvReac Severe Swelling Unverified 11/11/18 15:35 of Lip/Tongue/Throat amoxicillin [From Augmentin] AdvReac Intermediate Gastrointestinal Unverified 11/11/18 15:35 Upset clavulanic acid AdvReac Intermediate Gastrointestinal Unverified 11/11/18 15:35 [From Augmentin] Upset Sulfa (Sulfonamide AdvReac Unknown Unknown Unverified 11/11/18 15:35 Antibiotics) Consultations 11/11/18 16:14 ED Decision to Admit Stat Ordered Studies 11/11/18 13:52 CT angio chest PE protocol Stat Hospital Course (1) Chest pain: Presented to ED with right-sided chest pain. No acute EKG changes. HI ruled out with serial troponins. Acute PE ruled out by CTA chest. No apparent infectious process. Suspected chest wall pain. Has chronic pain related to arthritis. Therapeutic options for pain control limited. Best to avoid NSAID's due to anticoagulation; also has hx of allergy to celecoxib. No benefit in past from acetaminophen or tramadol. Best to avoid narcotics- history of concerns about her use of narcotics in the past. Best to avoid steroids due to DM. Already on gabapentin. Tried lidocaine patch without benefit. Increased duloxetine to 60 mg daily. Pt to schedule f/u appt with pain management. (2) Hypertension: Continue lisinopril. (3) Pulmonary nodule: Two 5 mm groundglass nodular opacities noted in RUL on CTA chest. Patient is a smoker. 2017 Fleischner Society guidelines recommend follow-up for multiple groundglass lesions < 6 mm in 3-6 months with consideration of f/u at [address] findings and recommendations discussed with patient. Smoking cessation discussed. Follow-up CT chest to be scheduled by PCP in 6 months. (4) CORIN (obstructive sleep apnea): Continue CPAP. (5) Diabetes mellitus, type II: DM type 2 managed with Lantus and NovoLog at home. Hgb A1C 6.9. Lantus + NovoLog per protocol during hospital stay. FBS day of discharge was 112. Discharge on usual regimen. (6) History of pulmonary embolism: Continue apixaban. (7) DVT prophylaxis: Taking apixaban for history of pulmonary embolism. Ambulate. (8) Discharge planning issues: Discharged to home. Family Medicine follow-up with Dr. Mena at [facility] in [place]. Total Time Total Time Spent Total Time Spent (In Minutes): 30 Discharge Plan Discharge Items Patient Disposition: Home - Self-Care Reason For Visit: CHEST PAIN Discharge Diagnosis: chest pain no sign of heart attack or new blood clots Condition: Good Discharge Goals: Decrease discomfort Activity: Resume your previous activity Non-emergency contact: Primary Care Provider and Hospitalist Call non-emergency contact if: you have any medication questions and you have a fever Diet: Carb Consistent or DM2 and Heart Healthy Addtl Provider Instructions: APPOINTMENTS: 11/18/2018 1:00 PM Promise Mena, [facility] Please schedule follow-up appointment with pain clinic. MEDICATION CHANGES: Increase duloxetine (Cymbalta) to 60 mg daily to help with pain. Take Extra Strength Tylenol, 2 pills every 8 hours as needed for pain. SUMMARY OF TEST RESULTS: No sign of heart attack. CT scan of chest did not show any blood clots. It did show 1 or 2 small spots (less than 1/4 inch). These are probably not serious, but should be followed. Hemoglobin A1C was 6.9, indicating pretty good control of your diabetes. LDL cholesterol (bad choleserol) was 45. The atorvastatin (Lipitor) is doing a good job lowering your cholesterol. RECOMMENDATIONS FOR FOLLOW-UP: Please have your primary care provider arrange for follow-up CT scan of chest in 6 months. OTHER INSTRUCTIONS: Please do not smoke. Seek medical attention if you have: * temperature above 101 * chest pain or trouble breathing * abdominal pain, nausea, vomiting * diarrhea, dark stools or bloody stools * any unanswered questions or concerns Call 911 if symptoms are severe. Please take good care of yourself. Call if you have any questions or problems. You can reach a [facility] hospitalist on duty at [facility] 24 hours a day by calling [phone]. Prescriptions: New duloxetine 60 mg capsule,delayed release(DR/EC) 60 mg PO DAILY Qty: 30 RF: 1 acetaminophen [Tylenol Extra Strength] 500 mg tablet 1,000 mg PO Q8H PRN (Reason: pain) Qty: 60 RF: 0 Continued oxybutynin chloride 10 mg tablet extended release 24hr 10 mg PO HS RF: 0 Chantix Continuing Month Box 1 mg tablet 1 mg PO BID RF: 0 primidone 50 mg tablet 50 mg PO HS RF: 0 albuterol sulfate [Ventolin HFA] 90 mcg/actuation HFA aerosol inhaler 2 puff inhalation Q4H PRN (Reason: Shortness Of Breath Or Wheezing) RF: 0 ropinirole 1 mg tablet 1 mg PO HS RF: 0 Lantus U-100 Insulin 100 unit/mL solution 35 unit subcut HS RF: 0 atorvastatin 10 mg tablet 10 mg PO HS RF: 0 clopidogrel 75 mg tablet 75 mg PO QAM RF: 0 gabapentin 800 mg tablet 800 mg PO TID RF: 0 trazodone 100 mg tablet 200 mg PO HS RF: 0 diphenhydramine-acetaminophen [Tylenol PM Extra Strength] 25-500 mg Tablet 2 tab PO HS RF: 0 metformin 500 mg tablet extended release 24 hr 500 mg PO UD RF: 0 Novolog Flexpen U-100 Insulin 100 unit/mL (3 mL) insulin pen 25 unit subcut UD RF: 0 levetiracetam 1,000 mg tablet 1,000 mg PO BID RF: 0 Eliquis 5 mg tablet 5 mg PO BID RF: 0 Discontinued duloxetine 30 mg capsule,delayed release(DR/EC) 30 mg PO QAM RF: 0 Stand-Alone Forms: Call Back Authorization, [facility] Discharge Orders: Discharge Order (Routine); Ordered 11/13/18 Ordered By: Vicente Aranda Admission Data Admit Date/Time: 11/11/18 17:02 Attending Provider: Vicente Aranda Admit Provider: Kristel Cortes Primary Care Provider: Adonay Martinez Other Providers: Zoe Perez ; Kristel Cortes Service: Telemetry Medical Other Interventions: Discharge Summary Assessment (RN) Last Done: 11/13/18 14:28
== END 2018-11-13 19:45 | disposition home or self-care (01) ==
LOC: ED 12:29 → 2N 12:29 → SUATTDRO 17:02 → 2N 17:23